=== PATIENT | male | born 1970 | race Caucasian/White ===

== ENCOUNTER 2016-12-15 11:59 | Day surgery (SDC) | payer OTHER ==
[~2016-12-15] VITALS: Ht 180.3 cm; Wt 76.4 kg
[~2016-12-15 11:59] MED LIST: ASPI81TA3 PO; Tramadol PO
[2016-12-15 13:50] VITALS: Ht 180.3 cm; Wt 76.4 kg
[2016-12-15] MEDS ORDERED: TRUVADA PO (13:58)
[2016-12-15 14:18] VITALS: BP 146/88; PULSE 69; RESP 12
[2016-12-15] MEDS ORDERED: PROPOFOL 40 ML ONE (14:18)
[2016-12-15] MEDS ORDERED: LIDOCAINE 2% (SDV) 5 ML INJ ONE (14:18)
--- NOTE | 2016-12-15 18:35 | OPR ---
Date/Time of Note Date/Time of Note DATE: 12/15/16 TIME: 18:33 Operative Report Preoperative Diagnosis Colorectal cancer screening Postoperative Diagnosis * Normal colonic mucosa to cecum. * Rule out microscopic, lymphocytic or collagenous colitis. Random biopsies obtained right and left colon * Moderate-sized internal hemorrhoids Operation/Procedure Performed Colonoscopy with biopsies Anesthesia: MAC Estimated Blood Loss: none Specimens Right and left colon Grafts/Implants None Complications: None KRISHNA PIERRE MD Dec 15, 2016 18:34
== END 2016-12-15 17:28 | disposition home or self-care (01) ==
LOC: GIL 11:59
PROVIDERS: ATTEND Internal Medicine Gastroenterology
DX: R19.4 Change in bowel habit (principal); K64.8 Other hemorrhoids; Z80.0 Family history of malignant neoplasm of digestive organs
CPT/HCPCS: 45380; 88305; Z7610